=== PATIENT | female | born 1995 | race Caucasian/White ===

== ENCOUNTER 2016-10-08 18:42 | Emergency (ER) | payer MEDICAID, OTHER ==
[~2016-10-08] VITALS: Ht 160 cm; Wt 77.0 kg
[2016-10-08 19:00] VITALS: BP 149/87
== END 2016-10-09 05:46 | disposition left against medical advice (07) ==
LOC: ER 10-09 02:36
DX: R07.9 Chest pain, unspecified (principal); Z53.21 Procedure and treatment not carried out due to patient leaving prior to being seen by health care provider
CPT/HCPCS: 93005

== ENCOUNTER 2018-06-20 21:22 | Emergency (ER) | payer SELFPAY ==
[~2018-06-20] VITALS: Ht 160 cm; Wt 87.0 kg
[2018-06-20 23:50] LABS: CLARITY URINE CLEAR (CLEAR); COLOR URINE YELLOW (YELLOW); KETONES URINE TRACE (NEGATIVE); LEUKOCYTE ESTERASE URINE NEGATIVE (NEGATIVE); NITRITE URINE NEGATIVE (NEGATIVE); OCCULT BLOOD URINE NEGATIVE (NEGATIVE); PH URINE 6.5 (4.5-8.0); PROTEIN URINE NEGATIVE (NEGATIVE); SPECIFIC GRAVITY URINE 1.025 (1.005-1.030); UROBILINOGEN URINE 0.2 E.U./dL (0.2-1.0)
[2018-06-21] MEDS: LOSARTAN POTASSIUM 50 MG TABLET PO SCH (00:42)
[2018-06-21] MEDS: IBUPROFEN 800MG TABLET PO ONE (00:45)
[2018-06-21 01:39] VITALS: BP 162/101
== END 2018-06-21 01:40 | disposition home or self-care (01) ==
LOC: ER 21:22
DX: H66.91 Otitis media, unspecified, right ear (principal); R50.9 Fever, unspecified; R51 Headache; J06.9 Acute upper respiratory infection, unspecified; I10 Essential (primary) hypertension; E66.9 Obesity, unspecified; Z88.1 Allergy status to other antibiotic agents
CPT/HCPCS: 81025; 87070; 87430; 87804; 99283